=== PATIENT | male | born 1990 | race Caucasian/White ===

== ENCOUNTER 2020-04-29 20:48 | Emergency (ER) | payer OTHER ==
[~2020-04-29] VITALS: Ht 177.8 cm; Wt 77.1 kg
[2020-04-29 20:50] VITALS: BP 118/78; Ht 177.8 cm; Wt 77.1 kg
== END 2020-04-29 22:11 | disposition home or self-care (01) ==
LOC: ED 20:48
DX: S69.82XA Other specified injuries of left wrist, hand and finger(s), initial encounter (principal); X58.XXXA Exposure to other specified factors, initial encounter; Y93.89 Activity, other specified; Y92.89 Other specified places as the place of occurrence of the external cause; Y99.8 Other external cause status